=== PATIENT | male | born 1980 | race Caucasian/White ===

== ENCOUNTER 2017-04-12 07:43 | Emergency (ER) | payer OTHER ==
[~2017-04-12] VITALS: Ht 182.9 cm; Wt 81.7 kg
[~2017-04-12 07:43] MED LIST: NORCO 5-325 TA1 EACH PO; PREDNISONE 20 M20 M1 PO; ROBAXIN 750 MG750 M1 PO
[2017-04-12 17:11] VITALS: BP 00/00
== END 2017-04-12 07:55 ==
LOC: ER 07:43
DX: I46.9 Cardiac arrest, cause unspecified (principal)